=== PATIENT | male | born 1985 | race Caucasian/White ===

== ENCOUNTER → 2018-10-26 | Outpatient (CLI) | payer OTHER ==
[2014-07-08 10:21] VITALS: BMI 36.9
[~2018-10-26] MED LIST: CETI10CA8 PO; DOCU-202 PO; METH54TA12 PO; PER PO
--- NOTE | 2018-10-26 11:50 | RADIOLOGY IMAGING REPORT ---
[place]AC[place] [facility] [place] NAME: Eren Leal : 1985 MR: [id number] V: [id number] EXAM DATE: ORDERING PHYSICIAN: JOAQUIN DOMINGUEZ TECHNOLOGIST: Location: [facility] Patient: Eren Leal : 1985 Visit/Account:[id number] Date of Sevice: 10/26/2018 VENOUS LOWER EXT RT HISTORY: Right leg redness and swelling ADDITIONAL HISTORY: None. COMPARISON: None. FINDINGS: Grayscale, duplex and color Doppler interrogation of the right lower extremity deep veins from common femoral vein to proximal calf was completed. Common femoral vein: Negative. Femoral vein: Negative. Deep femoral vein: Negative. Popliteal vein: Negative. Visualized deep calf veins: Negative. Popliteal fossa: Negative. Greater saphenous vein in the proximal thigh: Negative. IMPRESSION: Negative for deep venous thrombosis within the right lower extremity Report Dictated By: Young Arreguin at 10/26/2018 11:39 AM Report E-Signed By: Young Arreguin at 10/26/2018 11:41 AM WSN:[id number]
== END ==
LOC: US 10:33
PROVIDERS: ATTEND Nurse Practitioner Family
DX: I82.409 Acute embolism and thrombosis of unspecified deep veins of unspecified lower extremity (principal)